=== PATIENT | female | born 1980 | race Caucasian/White ===

== ENCOUNTER 2018-08-01 18:43 | Inpatient (IN) | payer SELFPAY ==
[~2018-08-01 18:43] MED LIST: Iopamidol 370 76% 100 ML VIAL ONE
[2018-08-01 19:20] LABS: #Basophils 0.1 thou/uL (0.0-0.2); #Eosinphils 0.2 thou/uL (0.0-0.7); #Lymphocytes 2.1 thou/uL (1.20-3.40); #Monocytes 0.6 thou/uL (0.11-0.59); #Neutrophils 4.5 thou/uL (1.40-6.50); %Basophils 1.3 % (0.0-1.0); %Eosinophils 2.7 % (0.0-10.0); %Lymphocytes 27.7 % (21.0-51.0); %Monocytes 7.6 % (0.0-10.0); %Neutrophils 60.7 % (42.0-75.0); Hemoglobin 11.3 g/dL (12.0-16.0); Mean Corpuscular HGB CONC 32.6 g/dL (32.0-36.0); Mean Corpuscular Hemoglobin 27.2 pg (27.0-31.0); Mean Corpuscular Volume 83.3 fL (78.0-98.0); Mean Platelet Volume 8.4 fL (7.4-10.4); Platelet Count 247 thou/uL (130-400); RBC Distribution Width 12.6 % (11.5-14.5); Red Blood Cell (RBC) Count 4.15 mill/uL (4.20-5.40); White Blood Cell (WBC) Count 7.4 thou/uL (4.8-10.8)
[2018-08-01 19:28] LABS: INR-International Normal Ratio 1.3; PTT 26.9 SEC (22.9-36.1); Prothrombin Time 15.8 SEC (12.0-14.7)
[2018-08-01 19:29] LABS: ALT (SGPT) 50 U/L (8-55); AST (SGOT) 24 U/L (5-34); Albumin 3.9 g/dL (3.5-5.0); Alkaline Phosphatase 104 U/L (40-150); Anion Gap 14 mmol/L (10-20); BUN (Urea Nitrogen) 9 mg/dL (7.0-18.7); Calc. Creatinine Clearance 0 mL/min (70-130); Calcium 9.4 mg/dL (7.8-10.44); Carbon Dioxide 23 mmol/L (22-29); Chloride 106 mmol/L (98-107); Estimated GFR-MDRD Greater than 90; Globulin 3.3 g/dL (2.4-3.5); Glucose 88 mg/dL (70-105); Potassium 4.4 mmol/L (3.5-5.1); Protein, Total 7.2 g/dL (6.0-8.3); Sodium 139 mmol/L (136-145)
[2018-08-01 19:31] LABS: CKMB 0.9 ng/mL (0-6.6); Troponin I Less than 0.010 ng/mL (< 0.028)
[2018-08-01 19:41] LABS: Bilirubin, Total 0.3 mg/dL (0.2-1.2)
[2018-08-01] MEDS ORDERED: Morphine 4 MG/ML VIAL ONE ×2 (20:22→21:39)
[2018-08-01] MEDS ORDERED: Promethazine HCl 25 MG/ML VIAL ONE (20:23)
--- NOTE | 2018-08-01 20:33 | CT ---
CTA OF THE CHEST WITH CONTRAST 08/01/18 COMPARISON: None. HISTORY: Chest pain and shortness of breath that started this morning. TECHNIQUE: Multiple contiguous axial images were obtained in a CTA of the chest with contrast per pulmonary embo lism protocol. 3D oblique MIP reformats and direct coronal reformats were performed. FINDINGS: The pulmonary arteries are well opacified without filling defects to suggest pulmonary emboli. The he art is normal in size without focal cardiac abnormality. No hilar or mediastinal lymphadenopathy are appreciated. No pulmonary infiltrates are seen. No suspicious pulmonary nodules are seen. No pneumothorax or pleur al effusion are present. The chest wall soft tissues are unremarkable. The visualized subdiaphragmatic structures are unremark able. The bones are unremarkable. IMPRESSION: No evidence of pulmonary thromboembolism. POS: [facility]
[2018-08-01] MEDS ORDERED: diphenhydrAMINE 50 MG/ML VIAL ONE (21:39)
[2018-08-01] MEDS ORDERED: Enoxaparin Sodium 30 MG/0.3 ML SYRINGE ONE (21:39)
[2018-08-01] MEDS ORDERED: Enoxaparin Sodium 80 MG/0.8 ML SYRINGE ONE (21:39)
[2018-08-01 22:25] LABS: Troponin I Less than 0.010 ng/mL (< 0.028)
[2018-08-01 22:52] VITALS: BMI 43.9
[2018-08-02] MEDS ORDERED: Aspirin 325 MG TAB PO SCH (01:45)
[2018-08-02 03:00] LABS: Troponin I Less than 0.010 ng/mL (< 0.028)
[2018-08-02 06:18] LABS: Anion Gap 16 mmol/L (10-20); BUN (Urea Nitrogen) 11 mg/dL (7.0-18.7); Calc. Creatinine Clearance 192 mL/min (70-130); Calcium 9.2 mg/dL (7.8-10.44); Carbon Dioxide 18 mmol/L (22-29); Chloride 110 mmol/L (98-107); Estimated GFR-MDRD 86; Glucose 96 mg/dL (70-105); Potassium 4.7 mmol/L (3.5-5.1); Sodium 139 mmol/L (136-145)
[2018-08-02] MEDS: oxyCODONE 5 MG TAB PO PRN ×3 (10:15→20:00)
[2018-08-02] MEDS: Enoxaparin Sodium 120 MG/0.8 ML SYRINGE SC SCH ×2 (12:22→22:13)
[2018-08-02] MEDS ORDERED: Lorazepam 2 MG/ML VIAL SLOW IVP SCH ×2 (14:45→15:15)
[2018-08-02] MEDS ORDERED: diphenhydrAMINE 25 MG CAP PO SCH (15:00)
--- NOTE | 2018-08-02 15:48 | NM ---
CARDIAC SPECT 08/02/18 HISTORY: 37-year-old female with chest pain, DVT, PE. TECHNIQUE: A stress only myocardial perfusion scan is performed following the intravenous administration of 31 m illicuries of technetium 99m Sestamibi injected intravenously. Pharmacologic stress with Adenosine wa s monitored and interpreted by BLAINE Gayle. FINDINGS: Homogeneous tracer distribution is seen in the myocardial segments on post stress images. GATED SPECT LVEF: 69%. WALL MOTION EXAM: Normal. IMPRESSION: Normal post stress myocardial perfusion scan. POS: [facility]
--- NOTE | 2018-08-02 16:28 | HP ---
PRIMARY CARE PHYSICIAN: No PCP. CODE STATUS: FULL CODE. TIME OF EVALUATION: 2:25 a.m. CHIEF COMPLAINT: Chest pain. HISTORY OF PRESENT ILLNESS: This is a 37-year-old female patient with past medical history of previous DVTs due to Factor V Leiden positive, the patient came to the [facility] ER after having a chest pain that she reported was in the left leg and the right arm where she had a DVT diagnosed past week, the patient reported that the pain was 9/10, with no clear tears, no alleviating factors, since she has a history of PE, she had concern that she might have another PE and that was the reason why she went to the ER. She also reported associated nausea. REVIEW OF SYSTEMS: No fever, no chills, generalized weakness. Respiratory: No cough, sputum production, shortness of breath. Cardiovascular: The patient reported chest pain, no palpitation. Gastrointestinal: No nausea, no vomiting , diarrhea or abdominal pain. ACCOUNT RESOLUTION ANALYST: No dizziness, headache, feeling lightheaded. Genitourinary: No burning on urination. Extremities: No leg swelling. All other systems were reviewed and negative except for the findings mentioned above. PAST MEDICAL HISTORY: Positive for factor V Leiden, DVT, Crohn's, celiac disease. PAST SURGICAL HISTORY: Positive for bowel resection, uterine ablation, umbilical hernia repair x2. PSYCHIATRIC HISTORY: No previous psychiatric history. SOCIAL HISTORY: The patient denies drug use. The patient has no smoking history. FAMILY HISTORY: The family history is positive for patient's brother having an acute OK at the age of 39. KNOWN ALLERGIES: AMBIEN, HEPARIN combination; however, the patient has gotten Lovenox earlier with no significant problems. TORADOL, ZOFRAN. REPORTED MEDICATIONS: Warfarin 5 mg 1 tablet once a day. PHYSICAL EXAMINATION: VITAL SIGNS: On presentation, blood pressure 119/74 with heart rate 99, respiratory rate was 20. Pain was 9/10, oxygen saturation was 95% on room air. GENERAL: The patient is alert, oriented, not in any acute distress. HEENT: Eyes: Normal conjunctivae. Moist oral mucosa. Anicteric. NECK: No JVD. RESPIRATORY: Bilateral air entry. No rales, no wheezing. Symmetric expansion. CARDIOVASCULAR: Normal rate, regular rhythm. No murmurs, no gallop. No edema. ABDOMEN: Soft, normal bowel sounds. MUSCULOSKELETAL: Baseline range of motion. No tenderness. SKIN: Warm, intact. No pallor, rash or redness. Peripheral pulses are present. Capillary refill seems to be intact. NEUROLOGIC: Baseline sensory, no evidence of any new focal weakness. Baseline speech. Cranial nerves seems to be intact. PSYCHIATRIC: The patient has a good mood. No anxiety. Oriented, optimal judgment. EXTREMITIES: Right lower extremity redness, swelling, calf pain. IMAGING: EKG as discussed with her performing physician from ER. The patient has normal sinus rhythm with a rate of 93 with no ectopics. No evidence of any acute ischemic event on the EKG. RADIOLOGY: Chest CT angio was done and was negative for pulmonary embolism. LABORATORY DATA: Labs were drawn. White count 7.4, hemoglobin 11.3, platelet count 247. PT 15.8, INR 1.3, PTT 26.9. Sodium 139, potassium 4.4, chloride 106 , carbon dioxide 23, anion gap 14, BUN 9, creatinine 0.6, GFR greater than 80. Glucose 88, calcium 9.4, total bilirubin 0.3, AST 24, ALT 15. Troponins were negative x3. ASSESSMENT AND PLAN: The patient will be placed in the hospital with the following medical problems. 1. 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 We will place the patient at high risk of developing new VTE, patient has been started on Lovenox to bridge until the INR reach a therapeutic level. Pharmacy to dose, Coumadin has been placed, we will trend INR, we will discontinue Lovenox as soon as INR reached 2.0. 2. Chest pain due to acute coronary syndrome. The patient has strong family history with her brother having an acute myocardial infarction at the age of 39 , and also the risk of developing spontaneous thrombosis of the coronary artery due to Factor V Leiden. The patient has been started on Lovenox, a pharmacological stress test has been ordered. Troponins are negative x3. EKG is negative. 3. Obesity. The patient has been advised to lose weight. 4. Deep venous thrombosis prophylaxis. Patient is in full dose Lovenox. 5. History of Crohn's disease. This is chronic, seems to be stable. No need for any acute intervention. [facility]
[2018-08-02] MEDS ORDERED: Warfarin Sodium 5 MG TAB PO SCH (17:00)
--- NOTE | 2018-08-02 17:27 | MRI ---
MRI OF BRAIN WITHOUT CONTRAST: 08/02/18 HISTORY: Blurred vision. COMPARISON: None. TECHNIQUE: Brain MRI is performed without intravenous gadolinium administration. Multisequential, multiplanar im aging is performed. FINDINGS: The calvarium has a normal T1 marrow signal intensity. Midline brain parenchymal structures are unrem arkable. No hemorrhage on the axial gradient echo sequence. No parenchymal mass, mass effect, or midline shift . Brain volume is age appropriate. Cortical finley-white matter differentiation is preserved. Ventricles and sulci are patent and symmetric. Central arterial flow voids are maintained. Absence restricted diffusion. No significant white matter hyperintensity on the axial T2 or FLAIR sequence. Adequate aeration of the sinuses and mastoid air cells. The visualized orbits are grossly unremarkable. Based on the sagittal T1 weighted images, the visualized optic chiasm and prechiasmatic optic nerves are unremarkable. IMPRESSION: Unremarkable pre and postcontrast brain MRI. POS: [facility]
[2018-08-02 17:37] LABS: #Eosinphils 0.2 thou/uL (0.0-0.7); #Lymphocytes 1.8 thou/uL (1.20-3.40); #Monocytes 0.4 thou/uL (0.11-0.59); %Basophils 0.3 % (0.0-1.0); %Eosinophils 3.1 % (0.0-10.0); %Lymphocytes 27.9 % (21.0-51.0); %Monocytes 5.5 % (0.0-10.0); %Neutrophils 63.2 % (42.0-75.0); Hemoglobin 11.5 g/dL (12.0-16.0); Mean Corpuscular HGB CONC 32.8 g/dL (32.0-36.0); Mean Corpuscular Hemoglobin 27.8 pg (27.0-31.0); Mean Corpuscular Volume 84.9 fL (78.0-98.0); Mean Platelet Volume 8.2 fL (7.4-10.4); Platelet Count 270 thou/uL (130-400); RBC Distribution Width 13.5 % (11.5-14.5); Red Blood Cell (RBC) Count 4.12 mill/uL (4.20-5.40); White Blood Cell (WBC) Count 6.3 thou/uL (4.8-10.8)
[2018-08-02 17:42] LABS: Prothrombin Time 13.7 SEC (12.0-14.7)
[2018-08-02] MEDS: diphenhydrAMINE 50 MG/ML VIAL IVP PRN (22:06)
[2018-08-03] MEDS: oxyCODONE 5 MG TAB PO PRN ×4 (00:04→21:02)
[2018-08-03] MEDS: diphenhydrAMINE 50 MG/ML VIAL IVP PRN (04:08)
[2018-08-03 06:03] LABS: Prothrombin Time 13.7 SEC (12.0-14.7)
[2018-08-03] MEDS ORDERED: Warfarin Sodium 5 MG TAB PO SCH (09:00)
[2018-08-03] MEDS: diphenhydrAMINE 25 MG CAP PO PRN ×2 (09:36→21:02)
[2018-08-03] MEDS: traMADol HCl 50 MG TAB PO PRN (09:36)
[2018-08-03] MEDS: Enoxaparin Sodium 120 MG/0.8 ML SYRINGE SC SCH ×2 (10:35→22:08)
--- NOTE | 2018-08-03 13:38 | PDOC.PN ---
- Subjective Encounter Start Date: 08/03/18 Encounter Start Time: 12:30 Subjective: pt up in bed no complains - Objective Resuscitation Status: Resuscitation Status FULL:Full Resuscitation Vital Signs & Weight: Vital Signs (12 hours) Temp Pulse Resp BP Pulse Ox 08/03/18 11:22 97.7 F 80 20 91/50 L 99 08/03/18 07:48 97.7 F 71 20 111/58 L 98 08/03/18 04:03 97.8 F 78 20 107/62 95 Weight Weight 264 lb 14.4 oz I&O: 08/02/18 08/03/18 08/04/18 06:59 06:59 06:59 Intake Total 241 1320 Output Total 525 Balance 241 795 Result Diagrams: 08/02/18 17:30 08/02/18 01:55 Phys Exam - Physical Examination Neck: no nodes, no JVD, supple, full ROM Respiratory: no wheezing, no rales, no rhonchi, wheezing present, clear to auscultation bilateral Cardiovascular: RRR, no significant murmur, no rub, gallop, irregular Gastrointestinal: soft, non-tender, no distention, positive bowel sounds Dx/Plan (1) Chest pain Code(s): R07.9 - CHEST PAIN, UNSPECIFIED Status: Acute (2) DVT (deep venous thrombosis) Code(s): I82.409 - ACUTE EMBOLISM AND THOMBOS UNSP DEEP VN UNSP LOWER EXTREMITY Status: Acute (3) Factor V deficiency Code(s): D68.2 - HEREDITARY DEFICIENCY OF OTHER CLOTTING FACTORS Status: Acute (4) Factor V Leiden Code(s): D68.51 - ACTIVATED PROTEIN C RESISTANCE Status: Acute - Plan * . pt states that she was not discharged on lovonox and was only discharged on Coumadin. She has failed xarelto/eliquis and pradaxa. She was recently seen in [place] for right arm pain and left leg pain and was found to have new DVT. will get records from [place]. pt cannot afford lovonox. Review of Systems - Review of Systems Respiratory: negative: Cough, Dry, Shortness of Breath, Hemoptysis, SOB with Excertion, Pleuritic Pain, Sputum, Wheezing Cardiovascular: negative: chest pain, palpitations, orthopnea, paroxysmal nocturnal dyspnea, edema, light headedness, other Gastrointestinal: negative: Nausea, Vomiting, Abdominal Pain, Diarrhea, Constipation, Melena, Hematochezia, Other - Medications/Allergies Allergies/Adverse Reactions: Allergies Allergy/AdvReac Type Severity Reaction Status Date / Time egg Allergy Verified 08/02/18 01:24 heparin Allergy Verified 08/02/18 01:24 ketorolac [From Toradol] Allergy Verified 08/02/18 01:24 ondansetron [From Zofran] Allergy Verified 08/02/18 01:24 zolpidem [From Ambien] Allergy Verified 08/02/18 01:24 Medications: Current Medications Acetaminophen (Tylenol) 650 mg PO Q4H PRN PRN Reason: Headache/Fever or Pain Diphenhydramine HCl (Benadryl) 25 mg PO Q8H PRN PRN Reason: Itching & Insomnia Last Admin: 08/03/18 09:36 Dose: 25 mg Enoxaparin Sodium (Lovenox) 120 mg SC 0900,2100 [facility] Last Admin: 08/03/18 10:35 Dose: 120 mg Miscellaneous Medication (Pharmacy To Dose) 1 each IVPB PRN PRN PRN Reason: Pharmacy to dose Oxycodone HCl (Oxycodone Ir) 5 mg PO Q4H PRN PRN Reason: Severe Pain (7-10) Last Admin: 08/03/18 04:03 Dose: 5 mg Sodium Chloride (Flush - Normal Saline) 10 ml IVF Q12HR [facility] Last Admin: 08/03/18 10:36 Dose: 10 ml Sodium Chloride (Flush - Normal Saline) 10 ml IVF PRN PRN PRN Reason: Saline Flush Tramadol HCl (Ultram) 50 mg PO Q6HR PRN PRN Reason: Moderate Pain (4-6) Last Admin: 08/03/18 09:36 Dose: 50 mg Warfarin Sodium (Coumadin) 10 mg PO 1700 [facility]
[2018-08-03] MEDS: Warfarin Sodium 7.5 MG TAB PO SCH (16:39)
[2018-08-03] MEDS ORDERED: Warfarin Sodium 10 MG TAB PO SCH (17:00)
[2018-08-04] MEDS: oxyCODONE 5 MG TAB PO PRN ×5 (01:12→20:02)
[2018-08-04 04:27] LABS: INR-International Normal Ratio 1.1; Prothrombin Time 13.9 SEC (12.0-14.7)
[2018-08-04] MEDS: diphenhydrAMINE 25 MG CAP PO PRN ×2 (08:00→20:02)
[2018-08-04] MEDS: Enoxaparin Sodium 120 MG/0.8 ML SYRINGE SC SCH ×2 (09:18→20:57)
--- NOTE | 2018-08-04 13:46 | PDOC.PN ---
- Subjective Encounter Start Date: 08/04/18 Encounter Start Time: 12:30 Subjective: pt up in bed no complains - Objective Resuscitation Status: Resuscitation Status FULL:Full Resuscitation Vital Signs & Weight: Vital Signs (12 hours) Temp Pulse Resp BP Pulse Ox 08/04/18 10:20 96.7 F L 78 18 133/67 78 L 08/04/18 07:53 97.5 F L 72 12 111/61 96 08/04/18 03:08 97.7 F 66 16 110/55 L 97 Weight Weight 264 lb 14.4 oz I&O: 08/03/18 08/04/18 08/05/18 06:59 06:59 06:59 Intake Total 1320 1420 Output Total 525 2800 Balance 795 -1380 Result Diagrams: 08/02/18 17:30 08/02/18 01:55 Phys Exam - Physical Examination Respiratory: no wheezing, no rales, no rhonchi, wheezing present, clear to auscultation bilateral Cardiovascular: RRR, no significant murmur, no rub, gallop, irregular Gastrointestinal: soft, non-tender, no distention, positive bowel sounds Musculoskeletal: no edema, pulses present, edema present Neurological: non-focal, normal sensation, moves all 4 limbs Dx/Plan (1) Chest pain Code(s): R07.9 - CHEST PAIN, UNSPECIFIED Status: Acute (2) DVT (deep venous thrombosis) Code(s): I82.409 - ACUTE EMBOLISM AND THOMBOS UNSP DEEP VN UNSP LOWER EXTREMITY Status: Acute - Plan cta no PE -: stress test negative -: echo normal -: did review records from [facility] she has new dvt on her right arm. she was -: therapeutic on coumadin before discharge. * There is a concern if she is taking her meds. Her factor V was negative and she has seen hem/onc in [place]. will continue to make sure she swallows her coumdain. Review of Systems - Review of Systems Respiratory: negative: Cough, Dry, Shortness of Breath, Hemoptysis, SOB with Excertion, Pleuritic Pain, Sputum, Wheezing Cardiovascular: negative: chest pain, palpitations, orthopnea, paroxysmal nocturnal dyspnea, edema, light headedness, other Gastrointestinal: negative: Nausea, Vomiting, Abdominal Pain, Diarrhea, Constipation, Melena, Hematochezia, Other - Medications/Allergies Allergies/Adverse Reactions: Allergies Allergy/AdvReac Type Severity Reaction Status Date / Time egg Allergy Verified 08/02/18 01:24 heparin Allergy Verified 08/02/18 01:24 ketorolac [From Toradol] Allergy Verified 08/02/18 01:24 ondansetron [From Zofran] Allergy Verified 08/02/18 01:24 zolpidem [From Ambien] Allergy Verified 08/02/18 01:24 Medications: Current Medications Acetaminophen (Tylenol) 650 mg PO Q4H PRN PRN Reason: Headache/Fever or Pain Diphenhydramine HCl (Benadryl) 25 mg PO Q8H PRN PRN Reason: Itching & Insomnia Last Admin: 08/04/18 08:00 Dose: 25 mg Enoxaparin Sodium (Lovenox) 120 mg SC 0900,2100 [facility] Last Admin: 08/04/18 09:18 Dose: 120 mg Miscellaneous Medication (Pharmacy To Dose) 1 each IVPB PRN PRN PRN Reason: Pharmacy to dose Oxycodone HCl (Oxycodone Ir) 5 mg PO Q4H PRN PRN Reason: Severe Pain (7-10) Last Admin: 08/04/18 11:47 Dose: 5 mg Sodium Chloride (Flush - Normal Saline) 10 ml IVF Q12HR [facility] Last Admin: 08/04/18 08:00 Dose: 10 ml Sodium Chloride (Flush - Normal Saline) 10 ml IVF PRN PRN PRN Reason: Saline Flush Tramadol HCl (Ultram) 50 mg PO Q6HR PRN PRN Reason: Moderate Pain (4-6) Last Admin: 08/03/18 09:36 Dose: 50 mg Warfarin Sodium (Coumadin) 15 mg PO 1700 [facility] Last Admin: 08/03/18 16:39 Dose: 15 mg
[2018-08-04] MEDS: Warfarin Sodium 7.5 MG TAB PO SCH (18:10)
[2018-08-05] MEDS: oxyCODONE 5 MG TAB PO PRN ×5 (00:06→19:36)
[2018-08-05 05:47] LABS: INR-International Normal Ratio 1.3; Prothrombin Time 16.7 SEC (12.0-14.7)
[2018-08-05] MEDS: diphenhydrAMINE 25 MG CAP PO PRN ×2 (08:18→19:36)
[2018-08-05] MEDS: Enoxaparin Sodium 120 MG/0.8 ML SYRINGE SC SCH ×2 (08:50→21:17)
--- NOTE | 2018-08-05 14:17 | PDOC.PN ---
- Subjective Encounter Start Date: 08/05/18 Encounter Start Time: 08:40 Pt seen for followup re: chest pain. Denies chest pain, shortness of breath, fevers or chills. - Objective Resuscitation Status: Resuscitation Status FULL:Full Resuscitation MAR Reviewed: Yes Vital Signs & Weight: Vital Signs (12 hours) Temp Pulse Resp BP Pulse Ox 08/05/18 07:25 96 08/05/18 07:20 97.0 F L 67 16 133/61 96 08/05/18 05:21 97 08/05/18 04:00 98.2 F 75 16 132/60 97 Weight Weight 271 lb 1.6 oz I&O: 08/04/18 08/05/18 08/06/18 06:59 06:59 06:59 Intake Total 1420 1200 Output Total 2800 Balance -1380 1200 Result Diagrams: 08/02/18 17:30 08/02/18 01:55 EKG Reviewed by me: Yes (Tele: NSR) Phys Exam - Physical Examination Morbid obesity HEENT: moist MMs, sclera anicteric, oral pharynx no lesions, 2+ tonsils Neck: no nodes, no JVD, supple, full ROM Respiratory: no wheezing, no rales, no rhonchi, clear to auscultation bilateral Cardiovascular: RRR, no rub S1, S2 Gastrointestinal: soft, non-tender, no distention, positive bowel sounds Neurological: moves all 4 limbs Psychiatric: normal affect, A&O x 3 Dx/Plan (1) Chest pain Code(s): R07.9 - CHEST PAIN, UNSPECIFIED Status: Acute Comment: etiology unclear, improving (2) DVT (deep venous thrombosis) Code(s): I82.409 - ACUTE EMBOLISM AND THOMBOS UNSP DEEP VN UNSP LOWER EXTREMITY Status: Acute Comment: Recently diagnosed DVT at a different facility, waiting for INR to be therapeutic - Plan * . Review of Systems - Review of Systems Constitutional: negative: fever, chills, sweats, weakness, malaise Respiratory: Sputum. negative: Cough, Shortness of Breath, SOB with Excertion, Pleuritic Pain, Wheezing Cardiovascular: chest pain. negative: palpitations, orthopnea, paroxysmal nocturnal dyspnea, edema, light headedness Gastrointestinal: negative: Nausea, Vomiting, Abdominal Pain, Diarrhea, Constipation, Melena, Hematochezia Genitourinary: negative: Dysuria, Frequency, Incontinence, Hematuria, Retention Skin: Other. negative: Rash, Lesions, Yaakov, Bruising - Medications/Allergies Allergies/Adverse Reactions: Allergies Allergy/AdvReac Type Severity Reaction Status Date / Time egg Allergy Verified 08/02/18 01:24 heparin Allergy Verified 08/02/18 01:24 ketorolac [From Toradol] Allergy Verified 08/02/18 01:24 ondansetron [From Zofran] Allergy Verified 08/02/18 01:24 zolpidem [From Ambien] Allergy Verified 08/02/18 01:24 Medications: Current Medications Acetaminophen (Tylenol) 650 mg PO Q4H PRN PRN Reason: Headache/Fever or Pain Diphenhydramine HCl (Benadryl) 25 mg PO Q8H PRN PRN Reason: Itching & Insomnia Last Admin: 08/05/18 08:18 Dose: 25 mg Enoxaparin Sodium (Lovenox) 120 mg SC 0900,2100 [facility] Last Admin: 08/05/18 08:50 Dose: 120 mg Miscellaneous Medication (Pharmacy To Dose) 1 each IVPB PRN PRN PRN Reason: Pharmacy to dose Oxycodone HCl (Oxycodone Ir) 5 mg PO Q4H PRN PRN Reason: Severe Pain (7-10) Last Admin: 08/05/18 13:47 Dose: 5 mg Sodium Chloride (Flush - Normal Saline) 10 ml IVF Q12HR [facility] Last Admin: 08/05/18 08:50 Dose: 10 ml Sodium Chloride (Flush - Normal Saline) 10 ml IVF PRN PRN PRN Reason: Saline Flush Tramadol HCl (Ultram) 50 mg PO Q6HR PRN PRN Reason: Moderate Pain (4-6) Last Admin: 08/03/18 09:36 Dose: 50 mg Warfarin Sodium (Coumadin) 15 mg PO 1700 [facility] Last Admin: 08/04/18 18:10 Dose: 15 mg
[2018-08-05] MEDS: Warfarin Sodium 7.5 MG TAB PO SCH (16:13)
[2018-08-06] MEDS: oxyCODONE 5 MG TAB PO PRN ×6 (00:11→22:23)
[2018-08-06 05:38] LABS: INR-International Normal Ratio 1.3; Prothrombin Time 16.4 SEC (12.0-14.7)
[2018-08-06] MEDS: diphenhydrAMINE 25 MG CAP PO PRN ×2 (08:11→19:36)
[2018-08-06] MEDS: Enoxaparin Sodium 120 MG/0.8 ML SYRINGE SC SCH ×2 (09:05→20:39)
--- NOTE | 2018-08-06 15:02 | PDOC.PN ---
- Subjective Encounter Start Date: 08/06/18 Encounter Start Time: 09:00 Pt seen for followup re: chest pain. Reports on and off chest pain, currently . No other complaints. - Objective Resuscitation Status: Resuscitation Status FULL:Full Resuscitation MAR Reviewed: Yes Vital Signs & Weight: Vital Signs (12 hours) Temp Pulse Resp BP BP Pulse Ox 08/06/18 11:23 97.7 F 76 18 135/83 99 08/06/18 11:15 99 08/06/18 07:30 97.6 F 86 16 126/69 98 08/06/18 04:00 98.6 F 82 18 128/64 95 Weight Weight 271 lb 11.2 oz I&O: 08/05/18 08/06/18 08/07/18 06:59 06:59 06:59 Intake Total 1200 1920 480 Balance 1200 1920 480 Result Diagrams: 08/02/18 17:30 08/02/18 01:55 EKG Reviewed by me: Yes (Tele: NSR) Phys Exam - Physical Examination Morbidly obese HEENT: moist MMs, sclera anicteric, oral pharynx no lesions, 2+ tonsils Neck: no nodes, no JVD, supple, full ROM Respiratory: no wheezing, no rales, no rhonchi, clear to auscultation bilateral Cardiovascular: RRR, no rub S1, S2 Gastrointestinal: soft, non-tender, no distention, positive bowel sounds Neurological: moves all 4 limbs Psychiatric: normal affect, A&O x 3 Dx/Plan (1) Chest pain Code(s): R07.9 - CHEST PAIN, UNSPECIFIED Status: Acute Comment: etiology unclear, no PE on CTA. Normal stress test. (2) DVT (deep venous thrombosis) Code(s): I82.409 - ACUTE EMBOLISM AND THOMBOS UNSP DEEP VN UNSP LOWER EXTREMITY Status: Acute Comment: INR still subtherapeutic - Plan * . Review of Systems - Review of Systems Constitutional: negative: fever, chills, sweats, weakness, malaise Cardiovascular: chest pain. negative: palpitations, orthopnea, paroxysmal nocturnal dyspnea, edema, light headedness Gastrointestinal: negative: Nausea, Vomiting, Abdominal Pain, Diarrhea, Constipation, Melena, Hematochezia Genitourinary: negative: Dysuria, Frequency, Incontinence, Hematuria, Retention Musculoskeletal: negative: Neck Pain, Shoulder Pain, Arm Pain, Back Pain, Hand Pain, Leg Pain, Foot Pain Skin: negative: Rash, Lesions, Yaakov, Bruising - Medications/Allergies Allergies/Adverse Reactions: Allergies Allergy/AdvReac Type Severity Reaction Status Date / Time egg Allergy Verified 08/02/18 01:24 heparin Allergy Verified 08/02/18 01:24 ketorolac [From Toradol] Allergy Verified 08/02/18 01:24 ondansetron [From Zofran] Allergy Verified 08/02/18 01:24 zolpidem [From Ambien] Allergy Verified 08/02/18 01:24 Medications: Current Medications Acetaminophen (Tylenol) 650 mg PO Q4H PRN PRN Reason: Headache/Fever or Pain Diphenhydramine HCl (Benadryl) 25 mg PO Q8H PRN PRN Reason: Itching & Insomnia Last Admin: 08/06/18 08:11 Dose: 25 mg Enoxaparin Sodium (Lovenox) 120 mg SC 0900,2100 [facility] Last Admin: 08/06/18 09:05 Dose: 120 mg Miscellaneous Medication (Pharmacy To Dose) 1 each IVPB PRN PRN PRN Reason: Pharmacy to dose Oxycodone HCl (Oxycodone Ir) 5 mg PO Q4H PRN PRN Reason: Severe Pain (7-10) Last Admin: 08/06/18 13:35 Dose: 5 mg Sodium Chloride (Flush - Normal Saline) 10 ml IVF Q12HR [facility] Last Admin: 08/06/18 08:12 Dose: 10 ml Sodium Chloride (Flush - Normal Saline) 10 ml IVF PRN PRN PRN Reason: Saline Flush Tramadol HCl (Ultram) 50 mg PO Q6HR PRN PRN Reason: Moderate Pain (4-6) Last Admin: 08/03/18 09:36 Dose: 50 mg Warfarin Sodium (Coumadin) 15 mg PO 1700 [facility] Last Admin: 08/05/18 16:13 Dose: 15 mg Warfarin Sodium (Coumadin) 5 mg PO 1700 [facility]
[2018-08-06] MEDS ORDERED: Warfarin Sodium 5 MG TAB PO SCH (17:00)
[2018-08-06] MEDS: Warfarin Sodium 7.5 MG TAB PO SCH (17:35)
[2018-08-06] MEDS: Acetaminophen 325 MG TAB PO PRN (19:36)
[2018-08-07] MEDS: oxyCODONE 5 MG TAB PO PRN ×5 (02:46→20:37)
[2018-08-07 05:21] LABS: INR-International Normal Ratio 1.2; Prothrombin Time 15.4 SEC (12.0-14.7)
--- NOTE | 2018-08-07 08:23 | EKG ---
Test Reason : STAT Blood Pressure : / mmHG Vent. Rate : 074 BPM Atrial Rate : 074 BPM P-R Int : 144 ms QRS Dur : 076 ms QT Int : 406 ms P-R-T Axes : 037 025 031 degrees QTc Int : 450 ms Normal sinus rhythm Low voltage QRS Borderline ECG No previous ECGs available Confirmed by DR. Laura LANCE ([id number]) on 08/07/2018 8:23:14 AM Referred By: CHRISTIANE Confirmed By:DR. Laura LANCE
[2018-08-07] MEDS: diphenhydrAMINE 25 MG CAP PO PRN (08:49)
[2018-08-07] MEDS: Enoxaparin Sodium 120 MG/0.8 ML SYRINGE SC SCH ×2 (10:17→20:19)
[2018-08-07] MEDS: Warfarin Sodium 10 MG TAB PO SCH (16:40)
[2018-08-07] MEDS: Acetaminophen 325 MG TAB PO PRN (16:45)
[2018-08-07] MEDS ORDERED: Warfarin Sodium 5 MG TAB PO SCH ×2 (17:00)
--- NOTE | 2018-08-07 17:50 | PDOC.PN ---
- Subjective Encounter Start Date: 08/07/18 Encounter Start Time: 08:40 Pt seen for followup re: chest pain. Reports she still has on and off chest pain. No nausea or vomiting. - Objective Resuscitation Status: Resuscitation Status FULL:Full Resuscitation MAR Reviewed: Yes Vital Signs & Weight: Vital Signs (12 hours) Temp Pulse Resp BP Pulse Ox 08/07/18 08:00 98.1 F 81 16 126/69 97 Weight Weight 262 lb 12.8 oz I&O: 08/06/18 08/07/18 08/08/18 06:59 06:59 06:59 Intake Total 1920 1185 720 Balance 1920 1185 720 Result Diagrams: 08/02/18 17:30 08/02/18 01:55 Additional Labs: Labs reviewed by me Phys Exam - Physical Examination Morbid obesity HEENT: moist MMs, sclera anicteric, oral pharynx no lesions, 2+ tonsils Neck: no nodes, no JVD, supple, full ROM Respiratory: no wheezing, no rales, no rhonchi, clear to auscultation bilateral Cardiovascular: RRR, no rub S1, S2 Gastrointestinal: soft, non-tender, no distention, positive bowel sounds Neurological: moves all 4 limbs Psychiatric: normal affect, A&O x 3 Dx/Plan (1) Chest pain Code(s): R07.9 - CHEST PAIN, UNSPECIFIED Status: Acute Comment: etiology unclear, continue pain meds (2) DVT (deep venous thrombosis) Code(s): I82.409 - ACUTE EMBOLISM AND THOMBOS UNSP DEEP VN UNSP LOWER EXTREMITY Status: Acute Comment: INR still subtherapeutic, pt reports needing doses as high as 30 mg in the past - Plan * . Review of Systems - Review of Systems Cardiovascular: chest pain. negative: palpitations, orthopnea, paroxysmal nocturnal dyspnea, edema, light headedness Gastrointestinal: negative: Nausea, Vomiting, Abdominal Pain, Diarrhea, Constipation, Melena, Hematochezia Genitourinary: negative: Dysuria, Frequency, Incontinence, Hematuria, Retention Musculoskeletal: negative: Neck Pain, Shoulder Pain, Arm Pain, Back Pain, Hand Pain, Leg Pain, Foot Pain Skin: negative: Rash, Lesions, Yaakov, Bruising Neurological: negative: Weakness, Numbness, Incoordination, Change in Speech, Confusion, Seizures - Medications/Allergies Allergies/Adverse Reactions: Allergies Allergy/AdvReac Type Severity Reaction Status Date / Time egg Allergy Verified 08/02/18 01:24 heparin Allergy Verified 08/02/18 01:24 ketorolac [From Toradol] Allergy Verified 08/02/18 01:24 ondansetron [From Zofran] Allergy Verified 08/02/18 01:24 zolpidem [From Ambien] Allergy Verified 08/02/18 01:24 Medications: Current Medications Acetaminophen (Tylenol) 650 mg PO Q4H PRN PRN Reason: Headache/Fever or Pain Last Admin: 08/07/18 16:45 Dose: 650 mg Diphenhydramine HCl (Benadryl) 25 mg PO Q8H PRN PRN Reason: Itching & Insomnia Last Admin: 08/07/18 08:49 Dose: 25 mg Enoxaparin Sodium (Lovenox) 120 mg SC 0900,2100 [facility] Last Admin: 08/07/18 10:17 Dose: 120 mg Miscellaneous Medication (Pharmacy To Dose) 1 each IVPB PRN PRN PRN Reason: Pharmacy to dose Oxycodone HCl (Oxycodone Ir) 5 mg PO Q4H PRN PRN Reason: Severe Pain (7-10) Last Admin: 08/07/18 16:39 Dose: 5 mg Sodium Chloride (Flush - Normal Saline) 10 ml IVF Q12HR [facility] Last Admin: 08/07/18 08:42 Dose: 10 ml Sodium Chloride (Flush - Normal Saline) 10 ml IVF PRN PRN PRN Reason: Saline Flush Tramadol HCl (Ultram) 50 mg PO Q6HR PRN PRN Reason: Moderate Pain (4-6) Last Admin: 08/03/18 09:36 Dose: 50 mg Warfarin Sodium (Coumadin) 20 mg PO 1700 [facility] Last Admin: 08/07/18 16:40 Dose: 20 mg
[2018-08-07] MEDS: Promethazine HCl 25 MG/ML VIAL SLOW IVP PRN (19:20)
[2018-08-07] MEDS: diphenhydrAMINE 50 MG/ML VIAL IVP PRN (20:18)
[2018-08-08] MEDS: oxyCODONE 5 MG TAB PO PRN ×6 (01:07→23:08)
[2018-08-08 04:56] LABS: Hemoglobin 12.1 g/dL (12.0-16.0); INR-International Normal Ratio 1.1; Platelet Count 245 thou/uL (130-400); Prothrombin Time 14.4 SEC (12.0-14.7)
[2018-08-08 05:19] LABS: Calc. Creatinine Clearance 203 mL/min (70-130); Estimated GFR-MDRD Greater than 90
[2018-08-08] MEDS: diphenhydrAMINE 50 MG/ML VIAL IVP PRN ×3 (08:27→23:45)
[2018-08-08] MEDS: Enoxaparin Sodium 120 MG/0.8 ML SYRINGE SC SCH ×2 (08:28→23:02)
[2018-08-08] MEDS: Warfarin Sodium 10 MG TAB PO SCH (16:46)
[2018-08-08] MEDS ORDERED: Warfarin Sodium 5 MG TAB PO SCH (17:00)
--- NOTE | 2018-08-08 18:11 | PDOC.PN ---
- Subjective Encounter Start Date: 08/08/18 Encounter Start Time: 18:09 Pt seen for followup re: pulmonary embolism. Staff report that when IV line was removed, there was a small amount of pus. - Objective Resuscitation Status: Resuscitation Status FULL:Full Resuscitation MAR Reviewed: Yes Vital Signs & Weight: Vital Signs (12 hours) Temp Pulse Resp BP Pulse Ox 08/08/18 08:00 96 08/08/18 07:53 98.3 F 80 16 134/83 96 Weight Weight 260 lb 12.8 oz I&O: 08/07/18 08/08/18 08/09/18 06:59 06:59 06:59 Intake Total 1185 2340 Balance 1185 2340 Result Diagrams: 08/08/18 04:15 08/08/18 04:15 Additional Labs: Labs reviewed by me Dx/Plan (1) DVT (deep venous thrombosis) Code(s): I82.409 - ACUTE EMBOLISM AND THOMBOS UNSP DEEP VN UNSP LOWER EXTREMITY Status: Acute Comment: INR still subtherapeutic, continue warfarin with Lovenox bridge (2) IV site infection Code(s): T82.7XXA - INFECT/INFLM REACT D/T OTH CARDI/VASC DEV/IMPLNT/GRFT, INIT Status: Acute Comment: start empiric antibiotics, check blood cultures (3) Chest pain Code(s): R07.9 - CHEST PAIN, UNSPECIFIED Status: Acute Comment: etiology unclear. Pt reports it is improving - Plan * . Review of Systems - Review of Systems Cardiovascular: chest pain. negative: palpitations, orthopnea, paroxysmal nocturnal dyspnea, edema, light headedness Gastrointestinal: negative: Nausea, Vomiting, Abdominal Pain, Diarrhea, Constipation, Melena, Hematochezia - Medications/Allergies Allergies/Adverse Reactions: Allergies Allergy/AdvReac Type Severity Reaction Status Date / Time egg Allergy Verified 08/02/18 01:24 heparin Allergy Verified 08/02/18 01:24 ketorolac [From Toradol] Allergy Verified 08/02/18 01:24 ondansetron [From Zofran] Allergy Verified 08/02/18 01:24 zolpidem [From Ambien] Allergy Verified 08/02/18 01:24 Medications: Current Medications Acetaminophen (Tylenol) 650 mg PO Q4H PRN PRN Reason: Headache/Fever or Pain Last Admin: 08/07/18 16:45 Dose: 650 mg Amoxicillin/Clavulanate Potassium (Augmentin) 875 mg PO Q12HR [facility] Diphenhydramine HCl (Benadryl) 25 mg PO Q8H PRN PRN Reason: Itching & Insomnia Last Admin: 08/07/18 08:49 Dose: 25 mg Diphenhydramine HCl (Benadryl) 25 mg IVP Q8H PRN PRN Reason: Pruritis/Hives Last Admin: 08/08/18 16:45 Dose: 25 mg Doxycycline Hyclate (Vibramycin) 100 mg PO BID [facility] Enoxaparin Sodium (Lovenox) 120 mg SC 0900,2100 [facility] Last Admin: 08/08/18 08:28 Dose: 120 mg Miscellaneous Medication (Pharmacy To Dose) 1 each IVPB PRN PRN PRN Reason: Pharmacy to dose Oxycodone HCl (Oxycodone Ir) 5 mg PO Q4H PRN PRN Reason: Severe Pain (7-10) Last Admin: 08/08/18 14:25 Dose: 5 mg Promethazine HCl (Phenergan) 12.5 mg SLOW IVP Q8H PRN PRN Reason: Nausea Last Admin: 08/07/18 19:20 Dose: 12.5 mg Sodium Chloride (Flush - Normal Saline) 10 ml IVF Q12HR [facility] Last Admin: 08/08/18 08:28 Dose: 10 ml Sodium Chloride (Flush - Normal Saline) 10 ml IVF PRN PRN PRN Reason: Saline Flush Last Admin: 08/07/18 20:19 Dose: 10 ml Tramadol HCl (Ultram) 50 mg PO Q6HR PRN PRN Reason: Moderate Pain (4-6) Last Admin: 08/03/18 09:36 Dose: 50 mg Warfarin Sodium (Coumadin) 20 mg PO 1700 [facility] Last Admin: 08/08/18 16:46 Dose: 20 mg Warfarin Sodium (Coumadin) 5 mg PO 1700 [facility] Last Admin: 08/08/18 16:47 Dose: 5 mg
[2018-08-08] MEDS: Doxycycline 100 MG CAP PO SCH (20:36)
[2018-08-08] MEDS: Amoxicillin/Potassium Clav 875 MG TAB PO SCH (20:36)
[2018-08-08] MEDS: Acetaminophen 325 MG TAB PO PRN (23:07)
[2018-08-09] MEDS: Acetaminophen 325 MG TAB PO PRN ×2 (03:42→16:33)
[2018-08-09] MEDS: oxyCODONE 5 MG TAB PO PRN ×5 (03:42→21:52)
[2018-08-09 04:43] LABS: #Eosinphils 0.3 thou/uL (0.0-0.7); #Lymphocytes 2.3 thou/uL (1.20-3.40); #Monocytes 0.6 thou/uL (0.11-0.59); #Neutrophils 2.8 thou/uL (1.40-6.50); %Basophils 0.8 % (0.0-1.0); %Eosinophils 4.4 % (0.0-10.0); %Lymphocytes 38.3 % (21.0-51.0); %Monocytes 9.5 % (0.0-10.0); Hemoglobin 11.6 g/dL (12.0-16.0); INR-International Normal Ratio 1.1; Mean Corpuscular HGB CONC 32.7 g/dL (32.0-36.0); Mean Corpuscular Hemoglobin 27.5 pg (27.0-31.0); Mean Corpuscular Volume 83.9 fL (78.0-98.0); Mean Platelet Volume 8.3 fL (7.4-10.4); Platelet Count 275 thou/uL (130-400); Prothrombin Time 14.5 SEC (12.0-14.7); RBC Distribution Width 13.7 % (11.5-14.5); Red Blood Cell (RBC) Count 4.22 mill/uL (4.20-5.40)
[2018-08-09 04:50] LABS: Anion Gap 12 mmol/L (10-20); BUN (Urea Nitrogen) 13 mg/dL (7.0-18.7); Calc. Creatinine Clearance 202 mL/min (70-130); Carbon Dioxide 23 mmol/L (22-29); Chloride 105 mmol/L (98-107); Estimated GFR-MDRD Greater than 90; Glucose 96 mg/dL (70-105); Potassium 4.4 mmol/L (3.5-5.1); Sodium 136 mmol/L (136-145)
[2018-08-09] MEDS: diphenhydrAMINE 50 MG/ML VIAL IVP PRN ×2 (08:01→21:45)
[2018-08-09] MEDS: Doxycycline 100 MG CAP PO SCH ×2 (08:02→21:44)
[2018-08-09] MEDS: Enoxaparin Sodium 120 MG/0.8 ML SYRINGE SC SCH ×2 (08:03→21:53)
[2018-08-09] MEDS: Amoxicillin/Potassium Clav 875 MG TAB PO SCH ×2 (08:03→21:44)
[2018-08-09] MEDS: Promethazine HCl 25 MG/ML VIAL SLOW IVP PRN (09:31)
[2018-08-09] MEDS ORDERED: Doxycycline 100 MG CAP PO SCH (10:00)
[2018-08-09] MEDS ORDERED: Amoxicillin/Potassium Clav 875 MG TAB PO SCH (10:00)
[2018-08-09] MEDS ORDERED: Warfarin Sodium 10 MG TAB PO SCH (17:00)
--- NOTE | 2018-08-09 17:49 | PDOC.PN ---
- Subjective Encounter Start Date: 08/09/18 Encounter Start Time: 09:20 Pt seen for followup re: pulmonary embolism. Chest pain better. No other complaints. - Objective Resuscitation Status: Resuscitation Status FULL:Full Resuscitation MAR Reviewed: Yes Vital Signs & Weight: Vital Signs (12 hours) Temp Pulse Resp BP Pulse Ox 08/09/18 08:00 98.2 F 84 16 142/85 H 95 Weight Weight 264 lb 11.2 oz I&O: 08/08/18 08/09/18 08/10/18 06:59 06:59 06:59 Intake Total 2340 820.5 Balance 2340 820.5 Result Diagrams: 08/09/18 03:34 08/09/18 03:34 Additional Labs: Labs reviewed by me Phys Exam - Physical Examination Morbid obesity HEENT: moist MMs Neck: supple Respiratory: clear to auscultation bilateral Cardiovascular: RRR Gastrointestinal: soft Neurological: moves all 4 limbs Psychiatric: normal affect Dx/Plan (1) DVT (deep venous thrombosis) Code(s): I82.409 - ACUTE EMBOLISM AND THOMBOS UNSP DEEP VN UNSP LOWER EXTREMITY Status: Acute Comment: INR still subtherapeutic, pt to receive 30 mg warfarin today (2) IV site infection Code(s): T82.7XXA - INFECT/INFLM REACT D/T OTH CARDI/VASC DEV/IMPLNT/GRFT, INIT Status: Acute Comment: no purulent discharge from IV site today (3) Chest pain Code(s): R07.9 - CHEST PAIN, UNSPECIFIED Status: Acute Comment: improving - Plan * . Review of Systems - Review of Systems Cardiovascular: chest pain. negative: palpitations, orthopnea, paroxysmal nocturnal dyspnea, edema, light headedness Gastrointestinal: negative: Nausea, Vomiting, Abdominal Pain, Diarrhea, Constipation, Melena, Hematochezia - Medications/Allergies Allergies/Adverse Reactions: Allergies Allergy/AdvReac Type Severity Reaction Status Date / Time egg Allergy Verified 08/02/18 01:24 heparin Allergy Verified 08/02/18 01:24 ketorolac [From Toradol] Allergy Verified 08/02/18 01:24 ondansetron [From Zofran] Allergy Verified 08/02/18 01:24 zolpidem [From Ambien] Allergy Verified 08/02/18 01:24 Medications: Current Medications Acetaminophen (Tylenol) 650 mg PO Q4H PRN PRN Reason: Headache/Fever or Pain Last Admin: 08/09/18 16:33 Dose: 650 mg Amoxicillin/Clavulanate Potassium (Augmentin) 875 mg PO Q12HR [facility] Last Admin: 08/09/18 08:03 Dose: 875 mg Diphenhydramine HCl (Benadryl) 25 mg PO Q8H PRN PRN Reason: Itching & Insomnia Last Admin: 08/07/18 08:49 Dose: 25 mg Diphenhydramine HCl (Benadryl) 25 mg IVP Q8H PRN PRN Reason: Pruritis/Hives Last Admin: 08/09/18 08:01 Dose: 25 mg Doxycycline Hyclate (Vibramycin) 100 mg PO BID [facility] Last Admin: 08/09/18 08:02 Dose: 100 mg Enoxaparin Sodium (Lovenox) 120 mg SC 0900,2100 [facility] Last Admin: 08/09/18 08:03 Dose: 120 mg Miscellaneous Medication (Pharmacy To Dose) 1 each IVPB PRN PRN PRN Reason: Pharmacy to dose Oxycodone HCl (Oxycodone Ir) 5 mg PO Q4H PRN PRN Reason: Severe Pain (7-10) Last Admin: 08/09/18 14:05 Dose: 5 mg Promethazine HCl (Phenergan) 12.5 mg SLOW IVP Q8H PRN PRN Reason: Nausea Last Admin: 08/09/18 09:31 Dose: 12.5 mg Sodium Chloride (Flush - Normal Saline) 10 ml IVF Q12HR [facility] Last Admin: 08/09/18 08:03 Dose: 10 ml Sodium Chloride (Flush - Normal Saline) 10 ml IVF PRN PRN PRN Reason: Saline Flush Last Admin: 08/08/18 20:38 Dose: 10 ml Tramadol HCl (Ultram) 50 mg PO Q6HR PRN PRN Reason: Moderate Pain (4-6) Last Admin: 08/03/18 09:36 Dose: 50 mg Warfarin Sodium (Coumadin) 30 mg PO 1700 [facility] Last Admin: 08/09/18 16:31 Dose: 30 mg
[2018-08-10] MEDS: oxyCODONE 5 MG TAB PO PRN ×5 (02:00→22:39)
[2018-08-10 04:38] LABS: Hemoglobin 11.8 g/dL (12.0-16.0); Platelet Count 275 thou/uL (130-400)
[2018-08-10 04:44] LABS: INR-International Normal Ratio 2.1; Prothrombin Time 23.6 SEC (12.0-14.7)
[2018-08-10 04:54] LABS: Calc. Creatinine Clearance 214 mL/min (70-130); Estimated GFR-MDRD Greater than 90
[2018-08-10] MEDS: Enoxaparin Sodium 120 MG/0.8 ML SYRINGE SC SCH (09:45)
[2018-08-10] MEDS: Doxycycline 100 MG CAP PO SCH ×2 (09:45→21:29)
[2018-08-10] MEDS: Amoxicillin/Potassium Clav 875 MG TAB PO SCH ×2 (09:45→21:29)
[2018-08-10] MEDS: diphenhydrAMINE 50 MG/ML VIAL IVP PRN (09:46)
--- NOTE | 2018-08-10 16:58 | PDOC.PN ---
- Subjective Encounter Start Date: 08/10/18 Encounter Start Time: 09:20 Pt seen for followup re: DVT. says pain is better. - Objective Resuscitation Status: Resuscitation Status FULL:Full Resuscitation MAR Reviewed: Yes Vital Signs & Weight: Vital Signs (12 hours) Temp Pulse Resp BP Pulse Ox 08/10/18 08:00 98.3 F 87 16 131/82 98 Weight Weight 262 lb 5.601 oz I&O: 08/09/18 08/10/18 08/11/18 06:59 06:59 06:59 Intake Total 820.5 500 Balance 820.5 500 Result Diagrams: 08/11/18 03:47 08/11/18 03:47 Additional Labs: Labs reviewed by me Phys Exam - Physical Examination Morbid obesity HEENT: moist MMs Neck: supple Respiratory: clear to auscultation bilateral Cardiovascular: RRR Gastrointestinal: soft Neurological: moves all 4 limbs Psychiatric: normal affect Dx/Plan (1) DVT (deep venous thrombosis) Code(s): I82.409 - ACUTE EMBOLISM AND THOMBOS UNSP DEEP VN UNSP LOWER EXTREMITY Status: Acute Comment: INR therapeutic today, check tomorrow (2) IV site infection Code(s): T82.7XXA - INFECT/INFLM REACT D/T OTH CARDI/VASC DEV/IMPLNT/GRFT, INIT Status: Acute Comment: no purulent discharge from IV site today, continue antibiotics (3) Chest pain Code(s): R07.9 - CHEST PAIN, UNSPECIFIED Status: Acute Comment: improved - Plan * . Review of Systems - Review of Systems Cardiovascular: chest pain. negative: palpitations, orthopnea, paroxysmal nocturnal dyspnea, edema, light headedness Gastrointestinal: negative: Nausea, Vomiting, Abdominal Pain, Diarrhea, Constipation, Melena, Hematochezia - Medications/Allergies Allergies/Adverse Reactions: Allergies Allergy/AdvReac Type Severity Reaction Status Date / Time egg Allergy Verified 08/02/18 01:24 heparin Allergy Verified 08/02/18 01:24 ketorolac [From Toradol] Allergy Verified 08/02/18 01:24 ondansetron [From Zofran] Allergy Verified 08/02/18 01:24 zolpidem [From Ambien] Allergy Verified 08/02/18 01:24 Medications: Current Medications Acetaminophen (Tylenol) 650 mg PO Q4H PRN PRN Reason: Headache/Fever or Pain Last Admin: 08/09/18 16:33 Dose: 650 mg Amoxicillin/Clavulanate Potassium (Augmentin) 875 mg PO Q12HR [facility] Last Admin: 08/11/18 08:29 Dose: 875 mg Diphenhydramine HCl (Benadryl) 25 mg PO Q8H PRN PRN Reason: Itching & Insomnia Last Admin: 08/10/18 21:29 Dose: 25 mg Diphenhydramine HCl (Benadryl) 25 mg IVP Q8H PRN PRN Reason: Pruritis/Hives Last Admin: 08/10/18 09:46 Dose: 25 mg Doxycycline Hyclate (Vibramycin) 100 mg PO BID [facility] Last Admin: 08/11/18 08:28 Dose: 100 mg Miscellaneous Medication (Pharmacy To Dose) 1 each IVPB PRN PRN PRN Reason: Pharmacy to dose Oxycodone HCl (Oxycodone Ir) 5 mg PO Q4H PRN PRN Reason: Severe Pain (7-10) Last Admin: 08/10/18 22:39 Dose: 5 mg Promethazine HCl (Phenergan) 12.5 mg SLOW IVP Q8H PRN PRN Reason: Nausea Last Admin: 08/09/18 09:31 Dose: 12.5 mg Sodium Chloride (Flush - Normal Saline) 10 ml IVF Q12HR [facility] Last Admin: 08/11/18 08:29 Dose: 10 ml Sodium Chloride (Flush - Normal Saline) 10 ml IVF PRN PRN PRN Reason: Saline Flush Last Admin: 08/08/18 20:38 Dose: 10 ml Tramadol HCl (Ultram) 50 mg PO Q6HR PRN PRN Reason: Moderate Pain (4-6) Last Admin: 08/11/18 09:55 Dose: 50 mg Warfarin Sodium (Coumadin) 25 mg PO 1700 [facility]
[2018-08-10] MEDS ORDERED: Warfarin Sodium 10 MG TAB PO SCH (17:00)
[2018-08-10] MEDS ORDERED: Warfarin Sodium 5 MG TAB PO SCH (17:00)
--- NOTE | 2018-08-10 17:07 | PDOC.PN ---
- Subjective Encounter Start Date: 08/10/18 Encounter Start Time: 09:20 Pt seen for followup re: pulmonary embolism. Chest pain is better. No nausea, vomiting or diarrhea. - Objective Resuscitation Status: Resuscitation Status FULL:Full Resuscitation MAR Reviewed: Yes Vital Signs & Weight: Vital Signs (12 hours) Temp Pulse Resp BP Pulse Ox 08/10/18 08:00 98.3 F 87 16 131/82 98 Weight Weight 262 lb 5.601 oz I&O: 08/09/18 08/10/18 08/11/18 06:59 06:59 06:59 Intake Total 820.5 500 Balance 820.5 500 Result Diagrams: 08/10/18 03:41 08/10/18 03:41 Additional Labs: Labs reviewed by me Phys Exam - Physical Examination Morbid obesity HEENT: moist MMs Neck: supple Respiratory: clear to auscultation bilateral Cardiovascular: RRR Gastrointestinal: positive bowel sounds Neurological: non-focal Psychiatric: normal affect Dx/Plan (1) DVT (deep venous thrombosis) Code(s): I82.409 - ACUTE EMBOLISM AND THOMBOS UNSP DEEP VN UNSP LOWER EXTREMITY Status: Acute Comment: INR therapeutic today, check tomorrow (2) IV site infection Code(s): T82.7XXA - INFECT/INFLM REACT D/T OTH CARDI/VASC DEV/IMPLNT/GRFT, INIT Status: Acute Comment: no purulent discharge from IV site today, continue antibiotics (3) Chest pain Code(s): R07.9 - CHEST PAIN, UNSPECIFIED Status: Acute Comment: improved - Plan * . Review of Systems - Medications/Allergies Allergies/Adverse Reactions: Allergies Allergy/AdvReac Type Severity Reaction Status Date / Time egg Allergy Verified 08/02/18 01:24 heparin Allergy Verified 08/02/18 01:24 ketorolac [From Toradol] Allergy Verified 08/02/18 01:24 ondansetron [From Zofran] Allergy Verified 08/02/18 01:24 zolpidem [From Ambien] Allergy Verified 08/02/18 01:24 Medications: Current Medications Acetaminophen (Tylenol) 650 mg PO Q4H PRN PRN Reason: Headache/Fever or Pain Last Admin: 08/09/18 16:33 Dose: 650 mg Amoxicillin/Clavulanate Potassium (Augmentin) 875 mg PO Q12HR [facility] Last Admin: 08/10/18 09:45 Dose: 875 mg Diphenhydramine HCl (Benadryl) 25 mg PO Q8H PRN PRN Reason: Itching & Insomnia Last Admin: 08/07/18 08:49 Dose: 25 mg Diphenhydramine HCl (Benadryl) 25 mg IVP Q8H PRN PRN Reason: Pruritis/Hives Last Admin: 08/10/18 09:46 Dose: 25 mg Doxycycline Hyclate (Vibramycin) 100 mg PO BID [facility] Last Admin: 08/10/18 09:45 Dose: 100 mg Miscellaneous Medication (Pharmacy To Dose) 1 each IVPB PRN PRN PRN Reason: Pharmacy to dose Oxycodone HCl (Oxycodone Ir) 5 mg PO Q4H PRN PRN Reason: Severe Pain (7-10) Last Admin: 08/10/18 14:07 Dose: 5 mg Promethazine HCl (Phenergan) 12.5 mg SLOW IVP Q8H PRN PRN Reason: Nausea Last Admin: 08/09/18 09:31 Dose: 12.5 mg Sodium Chloride (Flush - Normal Saline) 10 ml IVF Q12HR [facility] Last Admin: 08/10/18 09:45 Dose: 10 ml Sodium Chloride (Flush - Normal Saline) 10 ml IVF PRN PRN PRN Reason: Saline Flush Last Admin: 08/08/18 20:38 Dose: 10 ml Tramadol HCl (Ultram) 50 mg PO Q6HR PRN PRN Reason: Moderate Pain (4-6) Last Admin: 08/03/18 09:36 Dose: 50 mg Warfarin Sodium (Coumadin) 20 mg PO 1700 [facility] Warfarin Sodium (Coumadin) 5 mg PO 1700 [facility]
[2018-08-10] MEDS: diphenhydrAMINE 25 MG CAP PO PRN (21:29)
[2018-08-11 04:54] LABS: #Basophils 0.1 thou/uL (0.0-0.2); #Eosinphils 0.3 thou/uL (0.0-0.7); #Lymphocytes 2.2 thou/uL (1.20-3.40); #Monocytes 0.7 thou/uL (0.11-0.59); #Neutrophils 3.4 thou/uL (1.40-6.50); %Basophils 0.9 % (0.0-1.0); %Eosinophils 4.5 % (0.0-10.0); %Lymphocytes 33.4 % (21.0-51.0); %Neutrophils 51.1 % (42.0-75.0); Hemoglobin 11.4 g/dL (12.0-16.0); Mean Corpuscular HGB CONC 32.5 g/dL (32.0-36.0); Mean Corpuscular Hemoglobin 27.4 pg (27.0-31.0); Mean Corpuscular Volume 84.1 fL (78.0-98.0); Mean Platelet Volume 8.4 fL (7.4-10.4); Platelet Count 270 thou/uL (130-400); Red Blood Cell (RBC) Count 4.18 mill/uL (4.20-5.40); White Blood Cell (WBC) Count 6.6 thou/uL (4.8-10.8)
[2018-08-11 04:59] LABS: INR-International Normal Ratio 2.1; Prothrombin Time 23.6 SEC (12.0-14.7)
[2018-08-11 05:05] LABS: Anion Gap 13 mmol/L (10-20); BUN (Urea Nitrogen) 11 mg/dL (7.0-18.7); Calc. Creatinine Clearance 212 mL/min (70-130); Calcium 9.2 mg/dL (7.8-10.44); Carbon Dioxide 22 mmol/L (22-29); Chloride 106 mmol/L (98-107); Estimated GFR-MDRD Greater than 90; Glucose 104 mg/dL (70-105); Potassium 4.2 mmol/L (3.5-5.1); Sodium 137 mmol/L (136-145)
[2018-08-11 07:33] VITALS: BP 133/83; TEMP 98
[2018-08-11] MEDS: Doxycycline 100 MG CAP PO SCH (08:28)
[2018-08-11] MEDS: Amoxicillin/Potassium Clav 875 MG TAB PO SCH (08:29)
[2018-08-11] MEDS: traMADol HCl 50 MG TAB PO PRN (09:55)
--- NOTE | 2018-08-11 13:30 | DIS ---
DATE OF ADMISSION: 08/02/2018 DATE OF DISCHARGE: 08/11/2018 PRIMARY CARE PROVIDER: None. DISCHARGE DIAGNOSES: 1. Deep vein thrombosis. 2. IV site infection. 3. Chest pain, likely musculoskeletal. CONDITION OF PATIENT ON THE DAY OF DISCHARGE: Stable. I assessed Ms. Mancia on the day of discharge . She reports chest pain is better. Vital signs are stable. S1 and S2 are heard, regular. Lungs a re clear to auscultation bilaterally. DISCHARGE MEDICATIONS: Warfarin 25 mg daily, patient has been instructed to have her INR checked in 3-5 days' time, tramadol 50 mg every 6 hours as needed, Augmentin 875 mg 2 times a day for 4 more day s, doxycycline 100 mg 2 times a day for 4 more days. HOSPITAL COURSE: Mrs. Grider is a pleasant 38-year-old lady who was admitted to [facility] on 08/02/2018 for chest pain. Please refer to Dr. Hernandez's history and physical not e dated 08/02/2018 for further details. She was subtherapeutic at the time of admission and was know n to have deep vein thrombosis that was diagnosed recently. She was started on warfarin with Lovenox bridge. MRI of the brain on 08/02/2018 was unremarkable. She also had a nuclear stress test, which was normal. Left ventricular ejection fraction was 69%. CT angiogram of the chest did not show any evidence of pulmonary thromboembolism. After reviewing her medical records from her recent hospital ization in [place], where she was diagnosed with deep vein thrombosis, it appeared that patient was ne eding high doses of warfarin to be therapeutic. Her warfarin was managed by pharmacy department and became therapeutic when her warfarin dose was 25 mg. There was also question of purulent discharge from intravenous site. Blood cultures at the time of t his dictation are pending. She was started on Augmentin and doxycycline. She did not have any fever s or leukocytosis. She is advised to follow up with primary care provider for final culture report. She currently does not have a primary care provider and is contacting [facility] for followup. She will need her INR followed up through them as well. LABORATORY DATA: On the day of discharge, she has white count 6,600, hemoglobin 11.4, platelet count 270,000, normal electrolytes and normal creatinine. DISCHARGE DESTINATION: Home. TOTAL AMOUNT OF TIME SPENT COORDINATING THIS DISCHARGE: 33 minutes.
[2018-08-11] MEDS ORDERED: Warfarin Sodium 5 MG TAB PO SCH (17:00)
[2018-08-11] MEDS ORDERED: Warfarin Sodium 10 MG TAB PO SCH (17:00)
== END 2018-08-11 19:05 | disposition home or self-care (01) | DRG 300 ==
LOC: SCSER 18:43 → 2SW 21:15 → OBSVTOIN 08-04 08:47 → 2NO 08-04 09:59 → T4-B 08-06 11:09
PROVIDERS: ADMIT Hospitalist; ATTEND Hospitalist
DX: I82.402 Acute embolism and thrombosis of unspecified deep veins of left lower extremity (principal); D68.51 Activated protein C resistance; K50.90 Crohn's disease, unspecified, without complications; T82.7XXA Infection and inflammatory reaction due to other cardiac and vascular devices, implants and grafts, initial encounter; Z68.41 Body mass index [BMI] 40.0-44.9, adult; I82.621 Acute embolism and thrombosis of deep veins of right upper extremity; R07.9 Chest pain, unspecified; E66.01 Morbid (severe) obesity due to excess calories; Z86.718 Personal history of other venous thrombosis and embolism; Z86.711 Personal history of pulmonary embolism; Z79.01 Long term (current) use of anticoagulants; Z82.49 Family history of ischemic heart disease and other diseases of the circulatory system; Z88.8 Allergy status to other drugs, medicaments and biological substances
CPT/HCPCS: 36415; 70551; 71275; 78452; 80048; 80053; 82553; 82565; 84484; 85014; 85018; 85025; 85049; 85610; 85730; 87040; 93005; 93010; 93017; 93306; 94760; 96372; 96374; 96375; 96376; A4216; A9500; J0153; J1200; J1650; J2060; J2270; J2550

== ENCOUNTER 2018-08-16 20:18 | Emergency (ER) | payer SELFPAY ==
[2018-08-16 21:17] LABS: #Basophils 0.1 thou/uL (0.0-0.2); #Eosinphils 0.3 thou/uL (0.0-0.7); #Monocytes 0.6 thou/uL (0.11-0.59); #Neutrophils 4.5 thou/uL (1.40-6.50); %Eosinophils 3.9 % (0.0-10.0); %Lymphocytes 27.1 % (21.0-51.0); %Monocytes 7.7 % (0.0-10.0); %Neutrophils 60.4 % (42.0-75.0); Hemoglobin 12.2 g/dL (12.0-16.0); Mean Corpuscular HGB CONC 32.1 g/dL (32.0-36.0); Mean Corpuscular Hemoglobin 26.6 pg (27.0-31.0); Mean Corpuscular Volume 82.9 fL (78.0-98.0); Mean Platelet Volume 7.9 fL (7.4-10.4); Platelet Count 311 thou/uL (130-400); Red Blood Cell (RBC) Count 4.59 mill/uL (4.20-5.40); White Blood Cell (WBC) Count 7.5 thou/uL (4.8-10.8)
[2018-08-16 21:26] LABS: PTT 25.4 SEC (22.9-36.1)
[2018-08-16 21:35] LABS: ALT (SGPT) 15 U/L (8-55); AST (SGOT) 12 U/L (5-34); Albumin 4.2 g/dL (3.5-5.0); Alkaline Phosphatase 86 U/L (40-150); Anion Gap 12 mmol/L (10-20); BUN (Urea Nitrogen) 12 mg/dL (7.0-18.7); Bilirubin, Total 0.3 mg/dL (0.2-1.2); Calc. Creatinine Clearance 0 mL/min (70-130); Calcium 9.7 mg/dL (7.8-10.44); Carbon Dioxide 27 mmol/L (22-29); Chloride 105 mmol/L (98-107); Estimated GFR-MDRD 82; Globulin 3.5 g/dL (2.4-3.5); Glucose 97 mg/dL (70-105); Lipase 45 U/L (8-78); Potassium 4.4 mmol/L (3.5-5.1); Protein, Total 7.7 g/dL (6.0-8.3); Sodium 140 mmol/L (136-145)
[2018-08-16] MEDS ORDERED: Morphine 4 MG/ML VIAL ONE ×2 (22:02→23:27)
[2018-08-16 22:21] LABS: BHCG - Serum Negative (NEGATIVE); Pregs Control Background? CLEAR/WHITE (CLR/WHITE); Pregs Control Bar Appear? YES (CONTROL BAR)
--- NOTE | 2018-08-16 23:12 | CT ---
CT ABDOMEN WITH CONTRAST CT PELVIS WITH CONTRAST: DATE: 08/16/18 TIME: 10:28 p.m. HISTORY: 38-year-old female with generalized abdominal pain. COMPARISON: None available. TECHNIQUE: IV injection of iodinated contrast media: 100 mL Isovue 370. Oral contrast media: Not administered. FINDINGS: The bilateral kidneys, abdominal aorta, adrenals, pancreas, liver, and spleen, appendix, and urinary bladder, are normal. No colonic diverticulitis. No small bowel dilatation. No pneumoperitoneum or asc ites. Lung bases are clear. There is a 7.5 cm (transverse dimension) diastasis between the left and right rectus abdominis muscle s, through which there is a mild, shallow bulge of intraperitoneal contents a short distance towards the subcutaneous fat. This bulge contains small bowel loops, and anteriorly covered by a 0.9 cm thick soft tissue density covering, of uncertain etiology. Perhaps it represents surgical mesh. There is n o edema associated with this. There is no entrapment of small bowel. Multiple noncollapsed small renetta l loops are adherent to the ventral surface of the peritoneum at midline and on the right, suggestive of adhesions from previous abdominal surgery. There are numerous focal soft tissue nodules superficially located throughout the subcutaneous fat o f the abdominal pannus, which may represent sites of insulin injections. Recommend correlation with h istory. IMPRESSION: 1. No acute findings. 2. Diastasis between the right and left rectus abdominis muscles, with mild, shallow bulge of in traperitoneal contents ventrally, covered by what may represent mesh or scar tissue. 3. Numerous nodules throughout the superficial ventral abdominal pannus fat, presumably represen ting sites of numerous insulin injections. Recommend correlation with history. 4. Evidence of previous intraperitoneal surgery. WILLIAMS [place] POS: ARIK
== END 2018-08-17 00:08 | disposition home or self-care (01) ==
LOC: SCSER 20:18
DX: R10.13 Epigastric pain (principal); Z86.73 Personal history of transient ischemic attack (TIA), and cerebral infarction without residual deficits; Z79.01 Long term (current) use of anticoagulants
CPT/HCPCS: 74177; 80053; 83690; 84703; 85025; 85610; 85730; 96374; 96376; J2270

== ENCOUNTER 2018-08-17 17:16 | Emergency (ER) | payer SELFPAY ==
[2018-08-17 19:43] LABS: Prothrombin Time 13.7 SEC (12.0-14.7)
[2018-08-17] MEDS ORDERED: Enoxaparin Sodium 100 MG/ML SYRINGE ONE (20:00)
[2018-08-17] MEDS ORDERED: diphenhydrAMINE 25 MG CAP ONE (20:13)
[2018-08-17] MEDS ORDERED: Acetaminophen 500 MG TAB ONE (20:51)
== END 2018-08-17 21:40 | disposition home or self-care (01) ==
LOC: ERS 17:16
DX: D68.51 Activated protein C resistance (principal); Z86.718 Personal history of other venous thrombosis and embolism; Z79.01 Long term (current) use of anticoagulants
CPT/HCPCS: 36415; 85610; 85730; 96372; J1650